=== PATIENT | female | born 1980 ===

== ENCOUNTER 2022-01-02 13:03 | Emergency (ER) | payer OTHER ==
[2022-01-02 13:10] VITALS: BP 128/87; PULSE 74; RESP 20; TEMP 97.5
--- NOTE | 2022-01-02 14:29 | ED ---
General Adult HPI - General Chief complaint: Extremity Problem,Nontraumatic Stated complaint: Lt Leg Swelling Time Seen by Provider: 01/02/22 14:11 Source: patient Mode of arrival: ambulatory Limitations: no limitations - History of Present Illness Initial comments: Dictation was produced using [employer] dictation software. please excuse any grammatical, word or spelling errors. Chief Complaint: 41-year-old female presents emergency apart for left lower extremity pain and swelling History of Present Illness: 41-year-old female she was redirected to emergency department from a local urgent care. Patient states since Friday she's been having left lower extremity pain and swelling. She states that the pain was initially in her left popliteal space. She now has pain in her medial groin and inner calf. She knows to swelling and blanching redness around her leg. Patient has any history of blood clots. Does not have a history of bleeding disorder. She has history of thyroid disorder. Denies any recent travel. No trauma to the leg. Patient has no chest pain or shortness of breath. The ROS documented in this emergency department record has been reviewed and confirmed by me. Those systems with pertinent positive or negative responses have been documented in the HPI. All other systems are other negative and/or noncontributory. PHYSICAL EXAM: General Impression: Alert and oriented x3, not in acute distress HEENT: Normocephalic atraumatic, extra-ocular movements intact, pupils equal and reactive to light bilaterally, mucous membranes moist. Cardiovascular: Heart regular rate and rhythm Chest: Able to complete full sentences, no retractions, no tachypnea Abdomen: abdomen soft, non-tender, non-distended, no organomegaly Musculoskeletal: Pulses present and equal in all extremities, no peripheral edema Left lower extremity: No asymmetric swelling, there is palpatory tenderness to the left popliteal space, left medial thigh and left calf Motor: no focal deficits noted Neurological: CN II-XII grossly intact, no focal motor or sensory deficits noted Skin: Intact with no visualized rashes Psych: Normal affect and mood ED course: 41-year-old female redirected from the urgent care for suspicion of left lower extremity DVT. Vital Signs upon arrival are within acceptable limits. Patient has no complaints of chest pain or shortness of breath. Ultrasound of the lower extremity is unremarkable for DVT. She doesn't have a primary Care doctor she is given one for follow-up. Patient requesting work note. Workup provided. - Related Data Allergies Allergy/AdvReac Type Severity Reaction Status Date / Time cephalexin [From Keflex] Allergy Unknown Verified 01/02/22 13:06 Iodinated Contrast Media Allergy Unknown Verified 01/02/22 13:06 methimazole [From Tapazole] Allergy Unknown Verified 01/02/22 13:06 propylthiouracil Allergy Unknown Verified 01/02/22 13:06 Review of Systems ROS Statement: Those systems with pertinent positive or pertinent negative responses have been documented in the HPI. ROS Other: All systems not noted in ROS Statement are negative. Past Medical History Past Medical History: Thyroid Disorder History of Any Multi-Drug Resistant Organisms: None Reported Past Surgical History: Hysterectomy, Orthopedic Surgery, Tonsillectomy Past Psychological History: Depression Smoking Status: Current every day smoker Past Alcohol Use History: Rare Past Drug Use History: Marijuana General Exam Limitations: no limitations Course Vital Signs 01/02/22 13:07 Temperature 97.5 F L Pulse Rate 74 Respiratory 20 Rate Blood Pressure 128/87 O2 Sat by Pulse 100 Oximetry Disposition Clinical Impression: Leg pain Disposition: HOME SELF-CARE Condition: Good Instructions (If sedation given, give patient instructions): Leg Pain (ED) Is patient prescribed a controlled substance at d/c from ED?: No Referrals: Nicole Arroyo MD [STAFF PHYSICIAN] - 1-2 days
--- NOTE | 2022-01-02 15:19 | US ---
EXAMINATION TYPE: US venous doppler duplex LE LT DATE OF EXAM: 01/02/2022 3:15 PM COMPARISON: NONE CLINICAL HISTORY: leg swelling. Left ankle swelling x 5 days SIDE PERFORMED: Left TECHNIQUE: The lower extremity deep venous system is examined utilizing real time linear array sonog isis with graded compression, doppler sonography and color-flow sonography. VESSELS IMAGED: Common Femoral Vein Deep Femoral Vein Greater Saphenous Vein * Femoral Vein Popliteal Vein Small Saphenous Vein * Proximal Calf Veins (* superficial vessels) Left Leg: Negative for DVT Lymph node left groin = 0.8 x 0.6 x 0.5 cm IMPRESSION no evidence for DVT at this time.
== END 2022-01-02 16:15 | disposition home or self-care (01) ==
LOC: EC 13:03
DX: M79.605 Pain in left leg (principal); F17.200 Nicotine dependence, unspecified, uncomplicated; F12.90 Cannabis use, unspecified, uncomplicated; F32.A Depression, unspecified; Z72.89 Other problems related to lifestyle
CPT/HCPCS: 99283

== ENCOUNTER → 2022-06-12 | Outpatient (CLI) | payer OTHER ==
[2022-06-13 02:13] LABS: Rheumatoid Factor, Qnt <10 IU/mL (0-15)
[2022-06-13 05:18] LABS: Anti-Smith Ab Interp NEGATIVE (NEGATIVE); Cyclic Citrull Pep IgG Unit 0.7 U/mL; Cyclic Citrullinated Pep IgG NEGATIVE (NEGATIVE); DNA Double-Stranded NEGATIVE (NEGATIVE); Scleroderma SC-70 Ab <0.2 AI
[2022-06-13 05:19] LABS: Centromere Antibody <0.2 AI; Centromere Antibody Interp NEGATIVE (NEGATIVE); JO-1 IgG Antibody <0.2 AI
== END | disposition home or self-care (01) ==
LOC: LABWHC1 14:43
PROVIDERS: ATTEND Psychiatry & Neurology Neurology
DX: A69.20 Lyme disease, unspecified (principal)
CPT/HCPCS: 36415; 83516; 86038; 86140; 86200; 86225; 86235; 86431